=== PATIENT | female | born 1980 ===

== ENCOUNTER 2023-12-12 11:39 | Outpatient (RCR) | payer OTHER, SELFPAY | END 2023-12-12 23:59 | disposition home or self-care (01) | LOC: ROT 11:39 | PROVIDERS: ATTENDING PHYSICIAN Physician Assistant; FAMILY PHYSICIAN General Practice | DX: M25.531 Pain in right wrist (principal); Z73.6 Limitation of activities due to disability; S62.101D Fracture of unspecified carpal bone, right wrist, subsequent encounter for fracture with routine healing | CPT/HCPCS: 97010; 97166; 97535 ==